=== PATIENT | female | born 1990 | race Caucasian/White ===

== ENCOUNTER 2024-05-14 08:00 | Outpatient (RCR) | payer OTHER, SELFPAY ==
--- NOTE | 2024-05-14 10:10 | BH.SGPN.GN ---
Behaviors/Verbalizations/Mental Status: [] Eye contact is good. Motor activity is appropriate. Appearance is casual. Speech is Appropriate. Mood is anxious. Affect is congruent. Thoughts are linear and logical. No evidence of psychosis. Client Response/Progress/Benefit: [] Pt participated at times during group discussion. Engaged in group activity and attentive during psychoeducation. Along with peers, pt was able to identify barriers to taking action in their life. Identified several symptoms and stressors that pt feels are holding them back from progress such as isolation and need for perfection. Stated these things have kept pt from being calmer and less stressed. Benefited from increased self-awareness of obstacles. Will continue IOP tx to prevent decompensation, stabilize mood, improve functioning, and increase healthy coping. Narrative Note: []
--- NOTE | 2024-05-14 10:10 | BH.NA ---
Physical Data Vital Signs Pulse Rate: 73 Blood Pressure: 133/79 Height/Weight Height: 1.65 m Weight:: 86.183 kg Weight in Pounds: 190.0 lbs Current Medication Compliance Medication Compliance Do you take your medication as prescribed?: No (not on medication) Nutritional History Appetite Nutritional Instructions: Describe your appetite:: Fair Additional nutritional information:: Client states her weight is stable, but she hasn't felt as hungry lately. Functional Assessment Sleep Pattern Describe any problems with sleeping: Client states she sleeps 6-8 hours per night. Sensory/Communication Assess Communication Problems Do you have difficulty understanding what people are saying?: No Medical Problems/History Pain Assessment Do you have acute or chronic pain?: No Surgical History Surgical History Have you had any surgeries? If so, list type and date:: Yes (lymph node biopsy 2000 (was benign)) Substance Abuse Substance Abuse Please describe substance abuse in the last 30 days:: Client states she socially drinks alcohol seltzers on the weekends. Client states she vapes nicotine and also uses nicotine gum. Client states she has a past history of using cocaine but not currently. Client states she uses marijuana a few times a year usually to help with menstrual cycle pain. Client drinks 3-4 cups of coffee per day or 1-2 energy drinks per day. Discussed with client importance of decreasing caffeine use. Mental Status Summary Mental Status Significant Findings/Observations on Appearance and Mood:: Client is alert and oriented x 4. Client is casually groomed with good hygiene. Client is cooperative with assessment. Client makes good eye contact. Client's voice has normal rate and volume. Client has an appropriate affect. Client makes logical associations and has normal processing. Client does share that she has a history of delusions and hallucinations when she was a teenager (a voice that told her how she could kill people around her, that told her she could be the Daniel of and go around and kill people that were supposed to ). Client states these stopped in her early 20's and she has never had another delusion or hallucination again. Client denies homicidal thoughts or SI. Suicide Assessment Suicidal Ideation Are you currently or have you been suicidal in the past?: Yes Suicidal Intentional Rating Scale (SIRS): Suicidal thoughts (past) Physician Notification Past Psychiatric History Treatment Hx Past Psychiatric Medications:: Abilify, Lamictal, Depakote, Trazodone, [place], Seroquel, Ambien, Wellbutrin, Risperdal Age of first mental health symptoms: Client states she was first on medication for her mental health around age 17 and was diagnosed with bipolar disorder around age 21. Client was diagnosed as a teenager by a provider with schizoaffective disorder due to her hallucinations/delusions, but has not had any hallucinations/delusions since she was a teenager. Describe (age, circumstance, etc) any past hospitalizations: Client has been hospitalized 3-4 times in the past due to depression - 2010/2011, 2013, and in 2017. Current providers for mental health treatment (counselor, psychiatrist, residential case manager, etc.): None. Fall Risk Assessment Age Age: Less than 60 Mental Status Mental Status: Willing & able to ask for assistance when needed Physical Status Physical Status: No problems Impairments Impairments: None Elimination Elimination: Continent AND independent Gait or Balance Gait or Balance: Walks independently Hx of Falls History of falls in the past 6 months: No known history Medications/Substances Medications/substances used within the past 24 hours or ordered to administer: None of the medications/substances list above Total Score Total Points:: 0 RN Summary of Impressions Impressions Recommendations Impressions: Psychiatric Issues: 1. Bipolar 2 disorder (currently depressed) 2. History of alcohol use disorder Level of Care How do the client's current symptoms and functional deficits support need for this level of care?: Client was self-referred to IOP for a depressive episode that started about 3-4 weeks ago. Client states Every 3-4 years I get into a bad depression, and it's been about 3 years since my last one. Client reports feeling overwhelmed, isolating herself, and having decreased motivation and energy. Client states she does not have a strong support system in [place]. Client denies active SI, but does report some passive thoughts of at times. IOP will promote gains and prevent further decompensation while providing social support and skills training.
--- NOTE | 2024-05-14 11:10 | BH.SGPN.GN ---
Behaviors/Verbalizations/Mental Status: []Pt alert and oriented, casually dressed and groomed. Eye contact good. Motor activity appropriate. Speech within normal limits. Affect congruent, mood anxious. Thoughts linear, logical, no signs of hallucinations or delusions. Client Response/Progress/Benefit: [] Pt responded well to session, taking notes and participating in worksheet discussion. Pt connected with the discussion on motion vs action steps, and this helped pt learn how to set goals differently. Pt set a goal to set more realistic goals for the day. Pt identified motion steps including identifying points of discomfort, finding the non-negotiables for the day, and naming her values and how they align with her expectations. Pt also made action steps which included making a shorter to-do list and challenging herself to not add to the list. Appeared to benefit from identifying a small goal to benefit mental health. Pt is to continue IOP to prevent decompensation, gain healthy coping skills, and improve daily functioning. ??? Narrative Note: []
[2024-05-14 11:58] VITALS: BP 133/79; PULSE 73
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
--- NOTE | 2024-05-14 12:00 | BH.MTP_ITS ---
[facility] Patient Information Program Physician:: Pam Maria Primary Therapist:: Miki Barrinetos Psychiatric Diagnoses Psychiatric Diagnoses:: Bipolar 2 Disorder Diagnosis Code(s):: F31.81 Estimated LOS Estimated LOS (in weeks):: 6 Problem/Goal #1 Problem/Goal #1 Stated Goal:: Client will reduce mood instability, depressive symptoms, hopelessness, lack of motivation/energy, and negative core beliefs AEB self- report and reduction of scores on the depression domain of the DSM-5. Description of Barriers: low energy/motivation; limited support, difficulty being vulnerable and trusting, Objectives Objective #1: Stated Objective: Client will identify and replace 2-3 mistaken core beliefs patterns that reinforce depressive symptoms, low self-esteem, hoplessness and negative self-talk. Interventions: Through individual and group counseling will help client identify distorted, negative core beliefs about self and replace with more realistic, affirmative messages. Provide education on the impact mistaken beliefs have on thoughts, emotions, and behaviors. Therapist will encourage client to practice thought challenging and thought logs. Discharge Criteria: Able to identify 2-3 mistaken core beliefs and CBT strategies to challenge these beliefs on a consistent basis. Target Date: 07/02/24 Review Date: 06/11/24 Objective #2: Stated Objective: Client will reduce avoidance/isolative behaviors that reinforce depression by setting 1-2 behavioral activation goals each week to increase behavioral activation/ opposite-action. Will also identify obstacle to socialization as well as develop strategies to increase socialization. Interventions: Through individual and group counseling will provide education on behavioral activation, avoidance behaviors and maintenance cycles. Will teach client coping skills to improve emotional regulation, mindfulness, and distress tolerance to help client cope with distress related to breaking depressive cycle. Discharge Criteria: Will complete 1-2 weekly behavior activation goals and develop a socialization strategy while in IOP. Target Date: 07/02/24 Review Date: 06/11/24 Objective #3: Stated Objective: Client will identify 2-3 cognitive distortions that lead to rumination and learn 2-3 ways to manage these thoughts to better manage depression as shown by reduced DSM-5 scores for depression. Interventions: Through individual and group counselling will provide education on the most common cognitive distortions and teach client the connection between thoughts, emotions, and feelings. Therapist will assist client in identifying, challenging, and replacing dysfunctional thoughts with positive, more realistic thoughts. Discharge Criteria: Identify 2-3 commonly used cognitive distortions and 2-3 ways to reframe/challenge. Target Date: 07/02/24 Review Date: 06/11/24
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
--- NOTE | 2024-05-14 12:38 | BH.DR.ITP ---
Initial Treatment Plan Patient Information Visit Information: ADMISSION DATE: EXPECTED LOS: 4-6 weeks Problems/Symptoms Problem #1:: Depression Symptom:: Sadness, hopelessness, worthlessness, low motivation, anhedonia, biological hypersomnia, low energy, decreased concentration, passive thoughts of
--- NOTE | 2024-05-16 09:00 | BH.SGPN.GN ---
Behaviors/Verbalizations/Mental Status: [] Eye contact is good. Motor activity is appropriate. Appearance is casual. Speech is Appropriate. Mood is depressed/irritable. Affect is congruent. Thoughts are linear and logical. No evidence of psychosis. Reviewed daily check in sheet and no reports of suicidal ideations or intent. Client Response/Progress/Benefit: [] Pt participated when prompted. Attentive. Daily symptom tracker notes 3/5 for irritability and 1/5 for depression. I'm super grumpy today. No specific trigger noted. Psychosocial stressors which include returning to work next week and moving my stuff from [place]. Short check-in and did not elaborate much on emotional struggles, however this is only her 2nd in IOP level of care. No progress noted. Benefited from group support, encouragement, and feedback. Will continue in IOP to prevent decompensation, stablize mood, and improve functioning to transition back to full-time work. Narrative Note: []
--- NOTE | 2024-05-16 10:10 | BH.SGPN.GN ---
Behaviors/Verbalizations/Mental Status: [] Client alert and oriented, casually dressed and groomed. Eye contact good. Motor activity appropriate. Speech within normal limits. Affect congruent, mood euthymic. Thoughts linear, logical, no signs of hallucinations or delusions. Client Response/Progress/Benefit: [] Pt responded well to session AEB sharing and listening attentively to others. Group provided examples of benefits of having social support, including: validation, get assistance, and accountability. Pt also participated in group discussion regarding the barriers to accessing support including examples like: lack of trust, avoidance, and fear of vulnerability. Pt participated in experiential activity illustrating the impact communication, boundaries, and patience play in creating healthy support systems. Pt appeared to benefit from increased knowledge of the benefits of social support and greater self-awareness. Will continue IOP tx to prevent decompensation and improve overall functioning. Narrative Note: []
--- NOTE | 2024-05-16 11:10 | BH.SGPN.GN ---
Behaviors/Verbalizations/Mental Status: [] Client alert and oriented, casually dressed and groomed. Eye contact good. Motor activity appropriate. Speech within normal limits. Affect congruent, mood euthymic. Thoughts linear, logical, no signs of hallucinations or delusions. Client Response/Progress/Benefit: [] pt was an active participant throughout AEB contributing to discussion, providing personal examples, and taking notes. Pt provided input during discussion on the types of support our supports can provide. Pt able to identify current support system and barriers that get in the way of using supports. Pt reported after identifying what type of supports pt receives, pt gained awareness that pt could benefit from more social support. Pt wants to work on meeting more people, going to community events, and reach out more to others. Pt shared this would make her feel less alone. Pt seemed to benefit from identifying the type of support pt needs to work on improving. Pt recommended to continue IOP tx to prevent decompensation, reduce isolation, and increase emotional regulation skills. Narrative Note: []
--- NOTE | 2024-05-20 09:05 | BH.SGPN.GN ---
Behaviors/Verbalizations/Mental Status: [] Pt alert and oriented, neatly dressed and groomed. Eye contact good. Motor activity appropriate. Speech within normal limits. Affect congruent, mood irritable. Thoughts linear, logical, no signs of hallucinations or delusions. Reviewed pt?s symptom tracker, no risk for suicidal ideation, plan, or intent 05/20/24 Client Response/Progress/Benefit: []Pt responded well to session, attentive and engaged. Pt shared feeling tired and deep this morning as work has been a big stressor for pt. Pt shared she went back to work this week after being off for two weeks and pt wishes she would have taken more time off. Pt stated her win today is that she came back to IOP even though it's a lot because pt wants to get better. Pt is unsure how to make work less stressful, but group encouraged pt to talk with her boss and HR. Pt appeared to benefit from gaining supportive statements and connecting with peers. Pt will continue IOP tx to prevent decompensation, increase distress tolerance skills, and improve daily functioning. Narrative Note: []
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
--- NOTE | 2024-05-20 11:15 | BH.SGPN.GN ---
Behaviors/Verbalizations/Mental Status: [] Pt alert and oriented, casually dressed and groomed. Eye contact good. Motor activity appropriate. Speech within normal limits. Affect congruent, mood anxious and content. Thoughts linear, logical, no signs of hallucinations or delusions. Client Response/Progress/Benefit: [] Pt was an attentive and active participant in group discussions and experiential activity, doing well to regulate their emotions throughout the activity and work with peers. Attentive during psychoeducation on the 4 A's (Avoid, adapt, alter, accept) of coping with stress. Shared that they would benefit most from adapting her perspective regarding housing renovations and changes she is adjusting to. Was able to identify the connection between the experiential activity and utilization of stress management skills. Benefited from increased awareness of stress management strategies. Pt will continue IOP tx to prevent decompensation and improve daily functioning. Narrative Note: []
--- NOTE | 2024-05-21 09:00 | BH.MDN ---
Multi-Disciplinary Note Note 60-min Individual: Time Started:: 09:00 Date: 05/21/24 Purpose of session/treatment goals addressed:: Used the session to review current symptoms and progress in IOP. Continued to work on finalizing treatment plan. Eye Contact:: Good Motor Activity:: Appropriate Appearance:: Disheveled Speech:: Appropriate Mood:: Irritable and Depressed Affect:: Congruent Thoughts:: Linear, Logical and No evidence of hallucinations/delusions noted Staff Interventions:: psychoeducation on: (mistaken beliefs. ), rapport building, treatment planning and goal setting Client Response:: Pt reports things are going ok. She returned to work this week after being off 2 weeks due to mental health struggles. Admits that the transition has been difficult. Poor focus and is concerned about the toxic work environment. Processed recent interactions at work and is struggling to set boundaries. Role-played setting boundaries and admits this is difficulty for me. Identified goals to treatment which include increase social outlets, decreasing isolation, identifying mistaken beliefs/cognitive distortions, and developing coping/CBT/mindfulness skills to manage mental health struggles. She has no family or friends in the area. She moved to [place] 3 years ago. Risks/Concerns:: no current risks or concerns. As of 05/22/24 denies suicidal ideations, plan, or intent. Progress Toward Goals/Plan:: Limited progress noted. Returned to work this week which increased stress and mental health symptoms. Believes that she is adjusting to [facility] level of care. Denies any side effects from medications. Reports poor focus however unsure reason for this. Has been consistent and engaged in treatment in [facility]. Admits to difficulty being vulnerable infront of peers. Open to discussion on mistaken beliefs and how they can impact thoughts, emotions, and actions. Was psychoeducational handout on Mistaken Beliefs as well as questionnaire which she agreed to complete. Time Stopped:: 09:55
--- NOTE | 2024-05-21 10:10 | BH.SGPN.GN ---
Behaviors/Verbalizations/Mental Status: [] Client alert and oriented, casually dressed and groomed. Eye contact good. Motor activity appropriate. Speech within normal limits. Affect congruent, mood euthymic. Thoughts linear, logical, no signs of hallucinations or delusion Client Response/Progress/Benefit: [] Client was an active participant AEB contributing to discussion, taking notes, and engaging in group activity. Connected with the topic of pitfalls and listened to group discussion on barriers that prevent from choosing a healthier path to mental wellness. Group worked together to identify examples of personal pitfalls which included; isolation, avoidance, making excuses, denial, distortions, and unhealthy coping. Client identified need for control as a personal pitfalls that have inhibited progress in the past. Client benefited from group as client learned to better identify potential barriers to improving mental health symptoms. Client will continue IOP tx to prevent decompensation, increase self image, and improve daily functioning. Narrative Note: []
--- NOTE | 2024-05-21 11:10 | BH.SGPN.GN ---
Behaviors/Verbalizations/Mental Status: [] Client alert and oriented, casually dressed and groomed. Eye contact good. Motor activity appropriate. Speech within normal limits. Affect congruent, mood euthymic. Thoughts linear, logical, no signs of hallucinations or delusions. Client Response/Progress/Benefit: [] Client receptive of session, engaged throughout AEB client actively listening and contributing to discussion as well as taking notes.? Client participated in the experiential activity and did well to communicate ideas with peers and manage emotions. Client attentive as group processed how the emotions and perspective of the group impacted the activity. Group worked together to identify different coping skills to help manage pitfalls. Client identified pitfall they struggle with as need for control. Client plans to work on their pitfall by allowing herself to sit back and sit with the uncomfortable. Benefited from identifying personal pitfalls and strategies to overcome these pitfalls. Will continue IOP tx to prevent decompensation and increase positive thought patterns. Narrative Note: []
--- NOTE | 2024-05-23 09:00 | BH.SGPN.GN ---
Behaviors/Verbalizations/Mental Status: [] Eye contact is good. Motor activity is appropriate. Appearance is appropriate. Speech is Appropriate. Mood is anxious. Affect is congruent. Thoughts are linear and logical. No evidence of psychosis. Reviewed daily check in sheet and no reports of suicidal ideations or intent. Client Response/Progress/Benefit: [] Pt participated at times during group discussion. Attentive. Daily symptom tracker notes no significant distress. Reports mood and functioning are better. Emotion for today is mare. Utilizing skills such as challenging and reframing thoughts. She talked mostly about anxiety related to work, interacting with co-workers, and transitioning back to work. Progress noted. Benefited from group support, encouragment, and feedback. Will continue in IOP to prevent decompensation, stablize mood, and increase healthy coping skills. Narrative Note: []
--- NOTE | 2024-05-23 10:10 | BH.SGPN.GN ---
Behaviors/Verbalizations/Mental Status: []Patient was alert and oriented, casually dressed and groomed. Eye contact was good, motor activity normal, speech within normal limits. Affect congruent, mood calm. Thoughts linear, logical, no signs of hallucinations or delusion Client Response/Progress/Benefit: []Pt participated in the group discussions AEB nodding and taking notes. Attentive during psychoeducation Goal Setting. Participated during the discussion on common barriers and pt identified some personal barriers as feeling overwhelmed and having all or nothing expectations. Group also identified benefits of goals as sense of purpose, improved self-confidence, more motivation for other goals, and improved mental health. Pt?s personal benefit was having accountability and creating change. Benefited from increased awareness of mental health benefits of goals as well as psychoeducation on SMART goal criteria. Will continue in IOP to improve daily functioning, reduce negative thinking patterns, and improve mood stability. Narrative Note: []
--- NOTE | 2024-05-23 11:10 | BH.SGPN.GN ---
Behaviors/Verbalizations/Mental Status: []Pt alert and oriented, casually dressed and groomed. Eye contact good. Motor activity appropriate. Speech within normal limits. Affect congruent, mood anxious and depressed. Thoughts linear, logical, no signs of hallucinations or delusions. Client Response/Progress/Benefit: [] Pt was engaged during discussion and willing to complete the worksheet challenging them to develop a personal SMART goal. Pt was taken from group before sharing her smart goal, she did however complete the worksheet. Benefited from this group by developing a short-term SMART goal related to mental health. Will continue IOP tx to increase consistent use of healthy coping skills, challenge distortions, and prevent decompensation. Narrative Note: []
--- NOTE | 2024-05-26 09:00 | BH.SGPN.GN ---
Behaviors/Verbalizations/Mental Status: [] Eye contact is good. Motor activity is appropriate. Appearance is casual. Speech is Appropriate. Mood is anxious. Affect is congruent. Thoughts are linear and logical. No evidence of psychosis. Reviewed daily check in sheet and no reports of suicidal ideations or intent. Client Response/Progress/Benefit: [] Pt participated at times during the group discussions. Attentive. Daily symptom tracker notes 10/08 for anxiety and 09/07 for depression. She reports being active this past weekend and she attended an event with co-worker and clean and organized her room. Elaborated on how these were both beneficial to her mental health. According to pt she was anxiety this AM due to running late. She went on to discuss how being late can lead to negative automatic thoughts, anxiety, stress, and frustration. Peers also shared how being late impacts them, thier view of themselves, and can lead to believing they let others down. Pt reported feeling relieved that others felt the same as she did. Discussed skills and strategies to process anxiety which was beneficial. Will continue in IOP to prevent decompensation, increase healthy coping, and to stabilize mood. Narrative Note: []
--- NOTE | 2024-05-26 10:15 | BH.SGPN.GN ---
Behaviors/Verbalizations/Mental Status: []Client alert and oriented, casually dressed and groomed. Eye contact good. Motor activity appropriate. Speech within normal limits. Affect congruent, mood content. Thoughts linear, logical, no signs of hallucinations or delusions. Client Response/Progress/Benefit: [] Pt was an attentive an active participant, AEB taking notes and providing input in group discussion when prompted. Attentive during psychoeducation. Pt engaged during interactive discussion in which the group defined self-care and discussed its benefits. Group discussed barriers to engaging in self-care. Group members together came up with guilt, time, ?people pleasing?, not knowing what to do, and perception that its unproductive as barriers to engage in self-care. Pt stated their personal barrier is not knowing what to do and feeling unproductive. Pt participated in small groups where they worked to identified and challenged common self-care ?myths?. Benefited from increased awareness of self-care, its benefits, and the consequences of not utilizing self-care strategies. Will continue IOP tx to promote mood stability, reduce negative thinking patterns, and improve daily functioning. Narrative Note: []
--- NOTE | 2024-05-26 11:18 | BH.SGPN.GN ---
Behaviors/Verbalizations/Mental Status: [] Client alert and oriented, casually dressed and groomed. Eye contact good. Motor activity appropriate. Speech within normal limits. Affect congruent, mood anxious and depressed. Thoughts linear, logical, no signs of hallucinations or delusions. Client Response/Progress/Benefit: []Client engaged in discussion reviewing different areas of self-care and completing self-assessment of current self care, as well as providing input throughout discussion. Did well to complete self-care self-assessment worksheet. Client identified current self-care practices and what self-care activities client wants to start using. Client selected psychological self-care to begin practicing more consistently. Client plans to do this by challenging herself to get back into the habit of regularly unplugging from her phone. Appeared to benefit from completing the self-care evaluation and gaining insights into current self-care practices, as well as identifying areas in which client would like to improve upon. Client will continue IOP tx to prevent decompensation, improve mood stability, and increase healthy coping repertoire. Narrative Note: []
--- NOTE | 2024-05-28 09:00 | BH.SGPN.GN ---
Behaviors/Verbalizations/Mental Status: [] Pt alert and oriented, neatly dressed and groomed. Eye contact good. Motor activity appropriate. Speech within normal limits. Affect congruent, mood irritable. Thoughts linear, logical, no signs of hallucinations or delusions. Reviewed pt?s symptom tracker, no risk for suicidal ideation, plan, or intent 05/28/24 Client Response/Progress/Benefit: []Pt responded well to session, attentive and engaged. Pt reports feeling agitated this morning because pt has gone back to work part-time, but her boss still expects pt to complete her full-time work load. Pt shared her mental health win is that pt attempted to talk with her boss about making a more realistic workload, but her boss did not respect this boundary. Pt plan to talk to HR next. Pt also identified cleaning some of her room as a mental health win. Pt appeared to benefit from reflecting on positives and connecting with peers. Pt will continue IOP tx to promote mood stability, increase emotional regulation skills, and improve daily functioning. Narrative Note: []
--- NOTE | 2024-05-28 10:30 | BH.MDN ---
Multi-Disciplinary Note Note 60-min Individual: Time Started:: 10:30 Date: 05/28/24 Purpose of session/treatment goals addressed:: Utilized the session to review current symptoms and progress in IOP. Addressed treatment plan goal 1 obj 2. Eye Contact:: Good Motor Activity:: Appropriate Appearance:: Casual Speech:: Appropriate Mood:: Depressed Affect:: Congruent Thoughts:: Linear, Logical and No evidence of hallucinations/delusions noted Staff Interventions:: thought challenging, psychoeducation on: (mistaken core beliefs) and rapport building Client Response:: Pt reports increased stress and feeling overwhelmed. She mentioned coming to IOP as well as working and maintaining school has been very difficulty this week. Had discussion with her employer as she believes she is falling behind in her work. Concerned she will decompensate. Processed and normalized feelings and worked to identify strategies to possibly ease distress and prevent exacerbation of symptoms. I'm trying to do something now before its gets bad. Remained of the session was spent reviewing the results of the mistaken beliefs questionnaire. Questionnaire identified three mistaken core beliefs self-worth is dependent on other's approval; believe that you likely can't trust, rely on, or receive help from others, and likely believe that you have to be perfect in some or many areas of your life. Session was used to challenge perfectionist belief. Risks/Concerns:: no risks or concerns noted. As of 05/28/24 no active suicidal ideations, plan, or intent. Progress Toward Goals/Plan:: Progress noted. Consistent and engaged in IOP level of care. According to pt she can identify benefits to IOP. Responded well to education and discussion on mistaken beliefs. Was given task to review statements in which she scored high on questionnaire and create realistic affirmations to challenge this belief. Recent mental health exacerbation due to returning to work on maintaining responsibilities at home, work, school, and mental health treatment. Will continue in IOP to prevent decompensation and increase healthy coping.
--- NOTE | 2024-05-28 11:15 | BH.SGPN.GN ---
Behaviors/Verbalizations/Mental Status: []Eye contact is good. Motor activity is appropriate. Appearance is casual. Speech is Appropriate. Mood is depressed and agitated. Affect is congruent. Thoughts are linear and logical. No evidence of psychosis. Client Response/Progress/Benefit: [] Pt was an active participant in group discussions and activity. Engaged with peers in activity and identifying healthy ways to approach each conflict scenario. Group discussed various conflict resolution skills that can be useful in addressing conflict outside of IOP. Benefited from practicing and learning conflict resolution skills during group activity. Able to identify areas pt wants to work on to improve how pt manages conflict both internally and externally. Expressed wanting to work on improving communication skills to help promote healthier conflict resolution. Will continue in IOP to stabilize mood, improve application of coping skills, and prevent decompensation. Narrative Note: []
--- NOTE | 2024-05-28 11:55 | PCM.BH.PN ---
Progress Note Progress Note: History of Present Illness/Interim History: The patient is a 33-year-old single female with a history of bipolar 2 disorder who is seen in follow-up at the [facility] behavioral health [facility]. I last saw the patient 2 weeks ago and at that time Latuda was added for her depression. She is tolerating the Latuda well but is taking it in the morning because it made her have a little trouble getting to sleep at first. Her sleep has improved to about 6 hours a night now but she still has some difficulty getting to sleep sometimes as she stays up late. She is back at work and feels that it is stressful and has led to her mood being somewhat short tempered at times. Overall she is feels she is learning skills in the IOP and feels it has been helpful. She remains somewhat depressed and anxious and still has occasional passive thoughts of . She denies any thoughts of self-harm in recent days. She denies hopelessness, worthlessness, panic attacks, nightmares, flashbacks, suicidal ideation, plan for suicide, homicidal ideation, hallucinations, delusions or symptoms of joseph or hypomania. She has not used any alcohol since 4 days ago when she had 2 or 3 drinks. Prior to that she was using alcohol 2-3 times a week. Current Psychiatric Medications: [] Latuda 20 mg p.o. every morning with food. (Taking in the evening made her feel little activated.) Laboratory: Discussed with the patient that her thyroid function laboratory tests were within normal limits but her vitamin D was somewhat low at 20 and so vitamin D to 50,000 IU p.o. once a week for 3 months was added and prescription was sent in for this also. Mental Status Examination: [] The patient is a female who is overweight and has gauges in her ears and appears otherwise normal for stated age. She is ambulatory with a normal gait and casually dressed and groomed with good hygiene. She has no psychomotor agitation or retardation. She is cooperative during the interview. Eye contact is good and speech is normal rate and rhythm and fluent with no pressure. Mood is depressed and anxious. Affect is mildly constricted. Thought process is goal-directed and organized. Thought content: There is evidence still of passive thoughts of but there is no evidence of suicidal ideation, plan for suicide, homicidal ideation, hallucinations, delusions or joseph. Reality testing is intact. Judgment is intact. Insight is good. Impulsivity is moderate. Diagnoses: [] 1. Bipolar 2 disorder (currently depressed) 2. Rule out alcohol use disorder 3. Primary support and work issues Plan: [] The patient will continue the IOP as the structure, support, education and group therapy will hopefully prevent worsening of the patient's symptoms. She felt safe during the interview and if it anytime she does not feel safe she agrees to let us know or go to the emergency room. The risk, options, possible complications and side effects of the medications were again discussed with the patient including the need to take Latuda with food in order for it to be absorbed. The patient agrees to remain sober from all alcohol use or any drug use. She agrees to increase her dose of Latuda to 40 mg p.o. daily with food. She will continue to follow-up with her outpatient providers and I will see the patient in follow-up in 2 weeks.
--- NOTE | 2024-05-30 09:00 | BH.SGPN.GN ---
Behaviors/Verbalizations/Mental Status: [] Eye contact is good. Motor activity is appropriate. Appearance is casual. Speech is Appropriate. Mood is depressed. Affect is congruent. Thoughts are linear and logical. No evidence of psychosis. Reviewed daily check in sheet and no reports of suicidal ideations or intent. Client Response/Progress/Benefit: [] Pt was an active participant in group discussion. Attentive. Daily symptom tracker notes 09/07 for depression and agitation. She briefly discussion situational stressors which are impact her mental health, however overall is feeling optimistic. Brief check-in which was primarily superficial which is baseline for patient. Progress noted. Benefited from group support, encouragement, and feedback. Will continue in IOP to prevent decompensation, stabilize mood, and increase healty coping skills. Narrative Note: []
--- NOTE | 2024-05-30 10:13 | BH.SGPN.GN ---
Behaviors/Verbalizations/Mental Status: [] Eye contact is good. Motor activity is appropriate. Appearance is casual. Speech is Appropriate. Mood is depressed and anxious. Affect is congruent. Thoughts are linear and logical. No evidence of psychosis. Client Response/Progress/Benefit: [] Pt was an active participant in group discussions. Attentive during psychoeducation on the 4 communication styles (Passive, Passive-Aggressive, Aggressive, and Assertive) and the obstacles to effective communication. ?Self-identified a barrier they personally struggle with as body language sending a different message than pt intended. Contributed during interactive discussion on the benefits of communicating effectively which included; having one's needs met, building connection with others, decreases stress and uncertainty, improved relationships, healthier boundaries, and increased understanding of others. Worked well in small group in which pt and peers identified the benefits and disadvantages to the different communication styles. Benefited from increased understanding of communication styles and how these can impact effective communication. Will continue in IOP to prevent decompensation, improve mood stability and stress management, and improve functioning. Narrative Note: []
--- NOTE | 2024-05-30 11:10 | BH.SGPN.GN ---
Behaviors/Verbalizations/Mental Status: []Pt alert and oriented, casually dressed. Eye contact fair. Motor activity appropriate. Speech within normal limits. Affect congruent, mood euthymic. Thoughts linear, logical, no signs of hallucinations or delusions. Client Response/Progress/Benefit: [] Pt responded well to session AEB Pt listening attentively to others and providing input during group discussion on the pay offs and costs of the different communication styles. Pt able to connect how current communication style impacts mental health. Connected with peers? comments about importance of using assertive communication. Pt did well with practicing being assertive in the group activity and worked with group to identify potential skills for improving communication skills. When practicing being assertive pt noted she does have trouble with verbalizizing own needs. Pt seemed to benefit from increasing awareness of healthy strategies to improve communication. Will continue IOP tx to increase healthy coping skills, improve outlook, and prevent decompensation.
== END 2024-06-02 23:59 ==
LOC: BHIOP 08:00
PROVIDERS: Referring Provider Psychiatry & Neurology Psychiatry; Visit Provider Psychiatry & Neurology Psychiatry
DX: F31.81 Bipolar II disorder (principal)
CPT/HCPCS: S9480; 90837; 90853

== ENCOUNTER → 2024-05-14 | Outpatient (CLI) | payer OTHER, SELFPAY ==
[2024-05-14 14:33] LABS: Free T3 3.1 pg/mL (2.18-3.98); T4 Free Direct 1.01 ng/dL (0.76-1.46)
[2024-05-14 15:07] LABS: Vitamin D,25 Hydroxy 21.3 ng/mL
[2024-05-15 03:18] LABS: T4 Total, Thyroxin 8.2 ug/dL (4.8-13.9)
== END | disposition home or self-care (01) ==
PROVIDERS: Referring Provider Psychiatry & Neurology Psychiatry; Visit Provider Psychiatry & Neurology Psychiatry
DX: E55.9 Vitamin D deficiency, unspecified (principal)
CPT/HCPCS: 36415; 82306; 84436; 84439; 84443; 84481

== ENCOUNTER 2024-06-03 08:04 | Outpatient (RCR) | payer OTHER, SELFPAY ==
[2024-06-03 00:26] VITALS: BP 133/79; PULSE 73
--- NOTE | 2024-06-04 10:45 | BH.MDN_ITS ---
Multi-Disciplinary Note Note 60-min Individual: Time Started:: 10:45 Date: 06/04/24 Purpose of session/treatment goals addressed:: Pt left group several times this AM reporting feeling tired. Met with patient to review current symptoms and progress. Reviewed 3 week outcome scores. Eye Contact:: Good Motor Activity:: Appropriate Appearance:: Disheveled Speech:: Appropriate Mood:: Depressed Affect:: Congruent Thoughts:: Linear, Logical and No evidence of hallucinations/delusions noted Staff Interventions:: goal setting (daily behavioral activation goals. ) Client Response:: Pt requested to speak with therapist today. States being tired and overwhelmed which is primarily due to mandatory overtime at work the past 2 weekends. Feels that work is pushing her too much. Work along with [facility] and college courses has left her limited time for self-care which has impacted mental health. Problem-solved and identified strategies to incorporate. Reviewed 3 week outcome scores as well. Risks/Concerns:: No active suicidal ideations as of 06/04/24 Progress Toward Goals/Plan:: IOP physician completed [facility] paperwork for reduced work schedule. Reviewed with patient. Paperwork was filled based on 40 hour work week. Pt was allotted 12 hours to attend [facility] meaning she was recommended to work the remaining 28 hours. However with mandatory overtime pt is working closer to 40 hours a week than the expected 28 hours a week. Encouraged pt to reach out to HR to clarify and determine if additional letter or paperwork is needed to ensure pt is not expected to work 40 hours a week and attend treatment. Outcomes showed a 13% increase in overall symptoms which appears to be related to excessive work demands. Refer to treatment plan review for more information. Plan is to continue in [facility] to prevent decompensation, work with employer to ensure pt is not given unrealistic expectations while working through mental health struggles, and to increase healthy coping skills. Time Stopped:: 11:50
--- NOTE | 2024-06-04 13:00 | BH.MTP_ITS ---
Treatment Plan Review Demographics Date of Admission:: 05/14/24 Date of Treatment Plan Review:: 06/04/24 Admitting Diagnoses:: 1. Bipolar 2 disorder (currently depressed) Current Diagnoses:: 1. Bipolar 2 disorder (currently depressed) Patient Status Patient's Response to Treatment:: Consistent and engaged in treatment. Medication compliant. According to pt she does enjoy IOP and believes that she is benefiting from the program. Progress has been sporadic with decompensation in the past 2 weeks. According to pt she reports being tired and overwhelmed which is primarily due to mandatory overtime at work the past 2 weekends. Feels that work is pushing her too much. Work along with IOP and college courses has left her limited time for self-care which has impacted mental health. Outcomes show a 13% increase in overall symptoms since admission. According to outcomes pt has had a 33% increase in the depression and anger domain. Scores do indicate a 50% reduction in the anxiety domain, no SI in the past 2 weeks, and a significant reduction in the repetitive thoughts/behaviors domain. A note of concern as scores indicate a 3 point increase in the joseph domain, however pt reports increased depression and feeling fatigued. Status of Current Problems and Symptoms: Pt continues to report significant depression which is impacting her functioning. Primary stressor currently is unrealistic work expectations, feeling overwhelmed with school, work, and IOP, fatigue impacting self-care, isolative behaviors, and limited social network. Struggles with implementing healthy coping skills, proactive skills, boundary- setting, and people pleasing all of which impact her daily mental health. Also struggles with several mistaken core beliefs, negative thoughts, and cognitive d istortions. Progress Problem #1: Problem Name:: Depression Status of Goals:: Outcomes indicate a 33% increase in the depression domain since admission. obj1- Not complete; Able to identify 3 core beliefs and how they impact her mental health; in the process on developing ways to challenge Obj2- No complete; Due to mandatory OT at work this has impacted energy and functioning; limited progress on this objective Obj3- Not complete; Insight and awareness of cognitive distortions however has not developed effective reframing skills. Team Recommendations:: Continue with current course. Mandatory OT at work and unrealistic expectations have led to decompensation in the past 2 weeks. Individual sessions have focused more on self-care and functioning than goals. Program psychiatrist sent letter to pt's HR to clarify reduced schedule expecta tions.
--- NOTE | 2024-06-06 09:00 | BH.SGPN.GN ---
Behaviors/Verbalizations/Mental Status: [] Eye contact is good. Motor activity is appropriate. Appearance is casual. Speech is Appropriate. Mood is euthymic.. Affect is full. Thoughts are linear and logical. No evidence of psychosis. Reviewed daily check in sheet and no reports of suicidal ideations or intent. Client Response/Progress/Benefit: [] Pt participated at times during the group discussion. Attentive. Daily symptom tracker notes 09/07 for depression. I'm not super-stressed about anything. Continuing with goals and skills. 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 Progress noted. Benefited from group support,encouragement, and feedback. Will continue in IOP to maintain gains, prevent decompensation, and transition back to FT work. Narrative Note: []
--- NOTE | 2024-06-06 10:10 | BH.SGPN.GN ---
Behaviors/Verbalizations/Mental Status: []Pt alert and oriented, casually dressed and groomed. Eye contact good. Motor activity appropriate. Speech within normal limits. Affect congruent, mood content. Thoughts linear, logical, no signs of hallucinations or delusions. Client Response/Progress/Benefit: [] Pt took notes and contributed to group discussions. Attentive during psychoeducation on growth mindset. Participated during the activity. Interactive group discussion on growth mindset in which group verbalized their current fixed mindsets and how they affect their mental health. Pt shared common fixed mindset thoughts they have which included I'm always going to be sick; I can't get out of my current situation?. These thoughts lead to feeling and staying stuck, not letting supports help, and self-criticism. Pt stated they have personally struggled with fixed thoughts causing them to stop trying and numbing or isolation. Pt benefited from increased awareness of growth mindset and fixed thoughts and how fixed thoughts impact their mental health. Will continue IOP tx to prevent decompensation, improve daily functioning, and promote mood stability. Narrative Note: []
--- NOTE | 2024-06-06 11:15 | BH.SGPN.GN ---
Behaviors/Verbalizations/Mental Status: []Pt alert and oriented, neatly dressed and groomed. Eye contact good. Motor activity appropriate. Speech within normal limits. Affect congruent, mood euthymic. Thoughts linear, logical, no signs of hallucinations or delusions. Client Response/Progress/Benefit: [] Pt was an active participant during activity and discussion. Pt did well to remain attentive and participate as group worked on identifying characteristics and benefits of adopting a growth mindset. Worked with fellow participants in reframing the example fixed thoughts into growth mindset thoughts. Pt worked on changing own fixed thought and reframed the thought to ?I am putting forth effort to learn how to manage for the rest of my life.? Pt also wants to work on using dialectical thinking. appeared to benefit from challenging own thoughts and engaging in the activity. Pt will continue IOP tx to reduce negative thinking patterns, improve self-care practices, and improve daily functioning. ? Narrative Note: []
--- NOTE | 2024-06-09 09:05 | BH.SGPN.GN ---
Behaviors/Verbalizations/Mental Status: [] Eye contact is good. Motor activity is appropriate. Appearance is casual. Speech is Appropriate. Mood is anxious. Affect is congruent. Thoughts are linear and logical. No evidence of psychosis. Reviewed daily check in sheet and no reports of suicidal ideations or intent. Client Response/Progress/Benefit: [] Pt was an active participant in group discussions. Daily symptom tracker notes no significant distress. Attentive. Mental health win was the she got our of the house this weekend. According to pt she went out both Sunday and Sunday. While Sunday was a positive experience she reported that she did not have a good time on Sunday which she elaborated. She further discussed how leaving the house and not isolating was beneficial to her mental health. Progress noted. Benefited from group support, encouragement, and feedback. Will continue in IOP to prevent decompensation, stablize mood, increase healthy coping, and improve functioning to transition back to work. Narrative Note: []
--- NOTE | 2024-06-09 10:15 | BH.SGPN.GN ---
Behaviors/Verbalizations/Mental Status: [] Eye contact is good. Motor activity is appropriate. Appearance is casual. Speech is Appropriate. Mood is euthymic.. Affect is full. Thoughts are linear and logical. No evidence of psychosis. Client Response/Progress/Benefit: [] Pt did well to participate in activity and was engaged and attentive during psychoeducation and interactive discussion on coping skills, why people use unhealthy coping skills, how to replace unhealthy coping skills, and internal vs external coping skills. Attentive as peers came up with list of unhealthy and maladaptive coping skills. Group discussed the effects of how unhealthy coping skills can impact mental health in a negative way. Benefited from increased understanding of unhealthy coping skills and the need for developing healthy internal and external coping skills. Participated in small group activity which was meant to highlight the importance of having both internal and external coping skills. Will continue in IOP to prevent decompensation, increase healthy coping, and improve functioning to transition back to work. Narrative Note: []
--- NOTE | 2024-06-09 11:12 | BH.SGPN.GN ---
Behaviors/Verbalizations/Mental Status: [] Client alert and oriented, casually dressed and groomed. Eye contact good. Motor activity appropriate. Speech within normal limits. Affect congruent, mood euthymic. Thoughts linear, logical, no signs of hallucinations or delusions. Client Response/Progress/Benefit: [] Client responded well to session, attentive. Did well to process activity and work with group to relate the strategies used to overcome barriers in the activity to managing change in own life. Client identified a change would like to make is moving to [place]. Client stated currently in preparation stage. Reported goal to start working towards is changing job. Appeared to benefit from identifying a small goal to work towards. Client will continue IOP tx to prevent decompensation, gain healthy coping skills, and increase self care. Narrative Note: []
--- NOTE | 2024-06-09 20:00 | BH.SGPN.GN ---
Behaviors/Verbalizations/Mental Status: []Pt alert and oriented, casually dressed and groomed. Eye contact good. Motor activity appropriate. Speech within normal limits. Affect congruent, mood content. Thoughts linear, logical, no signs of hallucinations or delusions. Client Response/Progress/Benefit: [] Pt responded well to session, taking notes and contributing when prompted. Group discussed the different categories of coping skills which included distraction, emotional release, grounding, self-love, and thought challenging. Pt participated in creating a coping skills ?menu? from the five categories of coping skills. Pt's coping skill menu included: tactile activities, stretching, touching grass, being kind to self, and T.H.I.N.K. Appeared to benefit from increasing repertoire of healthy coping skills. Will continue IOP to promote mood stability, combat distortions, and increase stress management skills. Narrative Note: []
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
--- NOTE | 2024-06-11 10:10 | BH.SGPN.GN ---
Behaviors/Verbalizations/Mental Status: [] Eye contact is good. Motor activity is appropriate. Appearance is casual. Speech is Appropriate. Mood is euthymic. Affect is full.. Thoughts are linear and logical. No evidence of psychosis. Client Response/Progress/Benefit: [] Pt was an active participant during interactive group discussions.Along with peers contributed to interactive discussion on defining what a boundary is in mental health. Pt along with peers identified challenges to setting boundaries which included; people pleasing, fear of rejection, fear of loss, fear people won't respect the boundary, etc. Pt along with peers identified the benefits to setting boundaries such as reduces assumptions, can reduce stress, improve communication/relationships, and can keep us safe. Attentive during psychoeducation on types of boundaries (rigid, porous, flexible). Pt benefited from increased awareness and insight on the importance/benefit to setting health boundaries. Will continue in IOP to prevent decompensation, increase healthy coping, and to improve functioing to transition back to FT work. Narrative Note: []
--- NOTE | 2024-06-11 11:15 | BH.MDN ---
Multi-Disciplinary Note Note 45-min Individual: Time Started:: 11:15 Date: 06/11/24 Purpose of session/treatment goals addressed:: Reviewed current symptoms and progress. Addressed objective 2 and 3. Eye Contact:: Good Motor Activity:: Appropriate Appearance:: Casual Speech:: Appropriate Mood:: Euthymic Affect:: Full Thoughts:: Linear, Logical and No evidence of hallucinations/delusions noted Staff Interventions:: CBT techniques, mindfulness skills, discharge planning and other (Assertive communication skills) Client Response:: Consistent and engaged in IOP. According to patient she has noticed mood stabilization in the past week. Followed through with behavioral activation skills (engaged in several social activities, self-care, etc.) and calming skills. She has reached out to local volunteering opportunities. Utilizing boundary-setting and assertive communication skills with her employer. She brought up recent negative automatic thoughts, mistaken beliefs, and urges to people please at her own expense. Insight on how these thoughts and actions impacted her overall mental health. Role-played and provided education on assertive vs passive vs aggressive communication. Maintain balance between work and home. Risks/Concerns:: As of 06/11/24 denies suicidal ideations, plan, or intent Progress Toward Goals/Plan:: Progress noted since last week. Medication compliant. Less overwhelmed at home and work which has allowed pt to focus on her mental health and skill building. Reviewed topics discussed during IOP which include mistaken beliefs, cognitive distortions, and social engagement. Plan is to finish up education on thought-challenging, mistaken beliefs, and cognitive distortion with plan to discharge on 06/22/24. Pt set up appointment with photogrammetric stereo compiler this afternoon. Given list of local therapist to research as well. Time Stopped:: 12:00
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
--- NOTE | 2024-06-16 10:10 | BH.SGPN.GN ---
Behaviors/Verbalizations/Mental Status: [] Client alert and oriented, casually dressed and groomed. Eye contact good. Motor activity appropriate. Speech within normal limits. Affect congruent, mood euthymic. Thoughts linear, logical, no signs of hallucinations or delusions. Client Response/Progress/Benefit: [] Client responded well to session, contributing to discussion and engaged during the activity. Group identified the benefits of change which included: better mental health, increased confidence, and improved relationships. Worked with the group to identify barriers to change, which included: uncomfortable emotions such as anxiety, lack of motivation,fear of failure, disappointing others, and loss of momentum.Client participated along with group in activity where they identified and discussed the emotions related to change.. Benefited from increased awareness and understanding of emotions, benefits, and barriers related to change. Will continue IOP tx to continue to increase overall functioning. Narrative Note: []
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
--- NOTE | 2024-06-18 11:15 | BH.SGPN.GN ---
Behaviors/Verbalizations/Mental Status: [] Pt alert and oriented, casually dressed and groomed. Eye contact fair. Motor activity appropriate. Speech within normal limits. Affect congruent, mood euthymic, Thoughts linear, logical, no signs of hallucinations or delusions Client Response/Progress/Benefit: [] Client responded well to session, engaged and taking notes throughout. Worked with group to connect components of the experiential activity with characteristics of healthy and unhealthy relationships. Attentive during psychoeducation about characteristics of healthy, unhealthy, and abusive relationships. Client reported she would like to continue to improve respect in relationships. Appeared to benefit from identifying current healthy relationship attributes and an area client wants to work on to build healthier relationships. Client to continue IOP to improve healthy coping skills, challenge distortions, and prevent decompensation.
--- NOTE | 2024-06-18 11:54 | PCM.BH.PN ---
Progress Note Progress Note: History of Present Illness/Interim History: Patient is a 33-year-old single female with a history of bipolar 2 disorder who is seen in follow-up at the [facility]. I last saw the patient about 3 weeks ago and at that time her Latuda was increased to 40 mg p.o. daily with food. The patient is tolerating it well and is taking it at night because it makes her somewhat sleepy. She has returned to work where she continues to feel little stressed by her boss but she has not had any irritable mood swings or temper issues at work so this is an improvement. She feels the [facility] is teaching her valuable skills to deal with her mental health issues. She feels her depression may is much better lately. She has occasional passive thoughts of which only occur about once a week now and they were daily when she started the IOP. She denies thoughts of self-harm, hopelessness, worthlessness, panic attacks, suicidal ideation, plan for suicide, homicidal ideation, hallucinations, delusions or symptoms of hypomania. She is having about 1 or 2 drinks 2 days a week and feels that that is an okay amount to drink. Current Psychiatric Medications: [] Latuda 40 mg p.o. every night with food (x 3 weeks at this dose) Mental Status Examination: [] The patient is a 33-year-old female who is overweight and has gauges in her ears and appears otherwise normal for stated age. She is ambulatory with a normal gait and casually dressed and groomed with good hygiene. She has no psychomotor agitation or retardation. She is cooperative during the interview. Eye contact is good and speech is normal rate and rhythm and fluent with no pressure. Mood is mildly anxious. Affect is full and normal. Thought process is goal-directed and organized. Thought content: There is no evidence of passive thoughts of , suicidal ideation, homicidal ideation, plan for suicide, hallucinations, delusions or hypomania. Reality testing is intact. Judgment is intact. Insight is good. Diagnoses: [] 1. Bipolar 2 disorder 2. Rule out alcohol use disorder 3. Primary support and work issues Plan: [] The patient will discharge from the [facility] and [facility] in the next few days as she has benefited from the program. She felt safe during the interview and if it anytime she does not feel safe she agrees to let us know or go to the emergency room. No medication changes were made today. The patient will continue to follow-up with her outpatient providers and a refill was sent in for her Latuda at 40 mg p.o. daily with food.
--- NOTE | 2024-06-20 09:05 | BH.SGPN.GN ---
Behaviors/Verbalizations/Mental Status: [] Eye contact is good. Motor activity is appropriate. Appearance is casual. Speech is Appropriate. Mood is euthymic. Affect is full. Thoughts are linear and logical. No evidence of psychosis. Reviewed daily check in sheet and no reports of suicidal ideations or intent. Client Response/Progress/Benefit: [] Pt was an active participant in group discussions. Attentive. Pt reports being ?positive? today. States that she went out last night which was helpful. Shared that today is her last day in [facility] and she is set to discharge successfully. Briefly discussed her progress in IOP and overall feels more stable and confident in her ability to manage her emotions. Briefly discussed her aftercare plans and she is set with foam cutting supervisor and plans to attend aftercare group. Thanked her peers for support and shared that she initially struggled in process group however learned the benefits of being vulnerable for her mental health. Progress noted. Benefited from group support, encouragement, and feedback. Plan to discharge from [facility] today successfully. Will return to work full-time next week. Narrative Note: []
--- NOTE | 2024-06-20 10:30 | BH.MDN_ITS ---
Multi-Disciplinary Note Note 30-min Individual: Time Started:: 10:30 Date: 06/20/24 Purpose of session/treatment goals addressed:: Discharge planning. Reviewed outcome scores. Treatment plan review. Eye Contact:: Good Motor Activity:: Appropriate Appearance:: Casual Speech:: Appropriate Mood:: Euthymic Affect:: Full Thoughts:: Linear, Logical and No evidence of hallucinations/delusions noted Staff Interventions:: discharge planning and reviewed DSM-5 Client Response:: Pt presents today in good spirits. Improved mood since last session on 06/18/24. Hopeful and optimistic. Feels that she learned a great deal while in IOP and hopes to take components to use in her daily life. Plans on making a daily journal with wins, accomplishments, etc. Open to reviewing goals and topics covered in IOP. According to pt she benefit most from support, social interaction, and education. Therapist encouraged her to follow through with engaging with local [facility], volunteer opportunities, and therapy which will help her continue to benefit. Risks/Concerns:: Denies active suicidal ideations, plan, or intent. No risk of concerns noted. Progress Toward Goals/Plan:: Symptom tacker notes 09/07 for depression. No passive thoughts of , survival ambivalence, or suicidal thoughts. Reviewed DSM outcomes scores which show a 41% decrease in symptoms since admissions to [facility]. Scores indicate a 33% decrease in the depression domain, 66% reduction in the anger domain, 75% reduction in the anxiety domain, and a 71% reduction in the personality domain (indicating increased connection to people, and clarity on life). Pt has appointment with nail technician teacher next week and is planning to attend [facility] aftercare group. She reached out to local therapist however has not heard back. She was given two additional therapists and encouraged to reach out to them soon to set something up. Will follow up with her in aftercare. Time Stopped:: 11:00
--- NOTE | 2024-06-20 11:15 | BH.SGPN.GN ---
Behaviors/Verbalizations/Mental Status: []Eye contact is good. Motor activity is appropriate. Appearance is casual. Speech is Appropriate. Mood is anxious and euthymic. Affect is congruent. Thoughts are linear and logical. No evidence of psychosis. Client Response/Progress/Benefit: []Pt was an engaged participant in group discussion and activity. Worked with group to identify strategies to help overcome barriers and obstacles to desired reality. Group developed strategies for the common barriers. Identified personal barriers to desired reality and choose one obstacle to work. Pt stated pt wants to work on barrier of comparing herself to others by reflecting on her successes and celebrating herself more. Pt seemed to benefit from increased repertoire of healthy coping skills/strategies to overcome common barriers to moving forward. Pt will discharge from IOP tx as pt has accomplished her tx goals and no longer meets criteria for IOP level of care. Narrative Note: []
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
== END 2024-06-20 12:17 | disposition home or self-care (01) ==
LOC: BHIOP 08:04
PROVIDERS: Referring Provider Psychiatry & Neurology Psychiatry; Visit Provider Psychiatry & Neurology Psychiatry
DX: F31.81 Bipolar II disorder (principal)
CPT/HCPCS: S9480; 90832; 90834; 90837; 90853

== ENCOUNTER 2024-07-17 15:15 | Outpatient (RCR) | payer OTHER, SELFPAY ==
--- NOTE | 2024-07-17 17:19 | BH.MTP ---
Master Treatment Plan Patient Information Program Physician:: Dr. Pam Maria Primary Therapist:: KARTHIKEYAN Hess Psychiatric Diagnoses Psychiatric Diagnoses:: Bipolar 2 disorder Estimated LOS Estimated LOS (in weeks):: 8 Problem/Goal #1 Problem/Goal #1 Stated Goal:: client will maintain or see a reduction in symptoms AEB client score on the DSM 5 cross-cutting measure and improve client's daily functioning. Objectives Objective #1: Stated Objective: Client will continue to consistently apply healthy coping skills to maintain progress made in IOP tx. Interventions: Through group therapy, client will review warning signs and triggers as well as healthy coping skills learned in IOP tx to successfully maintain gains while transitioning into outpatient therapy. Discharge Criteria: Client will have accomplished this goal when client's score on the DSM-5 cross-cutting measure has maintained or reduced over a 8 week period. Target Date: 09/11/24 Review Date: 08/21/24 Objective #2: Stated Objective: Client will learn and utilize 2-3 maintenance strategies to prevent decompensation from original IOP DSM-5 scores. Interventions: Through group therapy, client will be provided with education on healthy maintenance behaviors, relapse prevention techniques, and healthy coping strategies. Discharge Criteria: Client will have accomplished this goal when can report using at least 2 maintenance skills to prevent decompensation compared to original IOP DSM-5 scores Target Date: 09/11/24 Review Date: 08/21/24
--- NOTE | 2024-08-21 15:05 | BH.DS ---
Discharge Summary Demographics Date of Admission:: 07/17/24 Discharge Date: 08/21/24 Presenting Problems at Admission:: Client discharged from IOP tx and transitioned to IOP aftercare to maintain gains client made in IOP and to reinforce healthy coping skills. At admission to IOP aftercare, client reported experiencing mild to moderate symptoms of anxiety and depression. Client was reporting ongoing issues with self-compassion, managing balance following return to work, and consistently managing daily stressors. Ongoing difficulties in maintaining consistent with healthy communication with supports, self-care, as well as challenging distorted thought patterns. Discharge Diagnoses:: 1. Bipolar 2 disorder Reason for Discharge:: Pt unable to consistently attend aftercare program due to work schedule. Treatment Progress During Treatment & Response: Progress limited as pt only able to attend aftercare group once due to scheduling conflicts. Pt was always engaged and attentive when in attendance and reports maintaining gains made while in IOP tx at that time. Consistent with meds and following through with skill application. Issues Still to be Addressed:: Distorted thoughts, negative self-talk, avoidance, ruminations, difficulty balancing work and other priorities Discharge Recommendations/Instructions:: Pt recommended to continue with outpatient providers at [facility] for ongoing medicaiton management and maintenance Discharge Handout
== END 2024-08-02 23:59 ==
LOC: BHOG 15:15
PROVIDERS: Visit Provider Psychiatry & Neurology Psychiatry
DX: F31.81 Bipolar II disorder (principal)
CPT/HCPCS: 90853

== ENCOUNTER 2024-08-04 07:11 | Outpatient (RCR) | payer OTHER, SELFPAY | END 2024-08-21 14:17 | disposition home or self-care (01) | LOC: BHOG 07:11 | PROVIDERS: Visit Provider Psychiatry & Neurology Psychiatry | DX: Z00.00 Encounter for general adult medical examination without abnormal findings (principal) ==